=== PATIENT | male | born 1960 | race African-American/Black ===

== ENCOUNTER 2022-06-05 18:50 | Inpatient (IN) | payer OTHER ==
[2022-06-05 23:56] VITALS: BMI 21.7
[2022-06-06] MEDS ORDERED: MAGNESIUM HYDROX 2400MG/30ML ORAL SUSPENSION 30 ML CUP PO PRN (00:13)
[2022-06-06] MEDS ORDERED: P-EPHED 60MG/TRIPROLIDI 2.5MG TABLET PO PRN (00:13)
[2022-06-06] MEDS ORDERED: guaiFENesin 200 MG/10 ML 10 ML UNIT-DOSE CUPS PO PRN (00:13)
[2022-06-06] MEDS ORDERED: NICOTINE POLACRILEX 2 MG GUM BC PRN (00:13)
[2022-06-06] MEDS ORDERED: MELATONIN 5 MG TABLETS PO PRN (00:13)
[2022-06-06] MEDS ORDERED: BENZOCAINE/MENTHOL (CHLORASEPTIC ) LOZENGE MM PRN (00:13)
[2022-06-06] MEDS ORDERED: IBUPROFEN 400 MG TABLET (FP) PO PRN (00:13)
[2022-06-06] MEDS ORDERED: MAG HYDROX/AL HYDROX/SIMETH 30 ML UNIT-DOSE CUP PO PRN (00:13)
[2022-06-06] MEDS ORDERED: LOPERAMIDE HCL 2 MG CAPSULE PO PRN (00:13)
[2022-06-06] MEDS ORDERED: MAGNESIUM CITRATE 300 ML BOTTLE PO PRN (00:13)
[2022-06-06] MEDS ORDERED: hydrOXYzine PAMOATE 25 MG CAPSULE (FP) PO PRN (00:13)
[2022-06-06] MEDS ORDERED: ACETAMINOPHEN 325 MG TABLET (FP) PO PRN (00:13)
[2022-06-06] MEDS ORDERED: PRENATAL VITAMINS W/ FOLIC ACID TABLET (FP) PO SCH (10:00)
[2022-06-06 14:21] VITALS: BP 107/69; PULSE 68; RESP 17; TEMP 96.4
[2022-06-06] MEDS ORDERED: THIAMINE HCL 100 MG TABLET (FP) PO SCH (22:00)
== END 2022-06-06 22:00 | disposition short-term general hospital (02) | DRG 772 ==
LOC: YASAS 18:50 → Y3E 06-06 02:10
PROVIDERS: ADMIT Allergy & Immunology; ATTEND Psychiatry & Neurology Pain Medicine
PROC: HZ42ZZZ Group Counseling for Substance Abuse Treatment, Cognitive-Behavioral (ICD-10-PCS; principal; 2022-06-06)
DX: F14.20 Cocaine dependence, uncomplicated (principal); F17.220 Nicotine dependence, chewing tobacco, uncomplicated; B20 Human immunodeficiency virus [HIV] disease; B37.81 Candidal esophagitis; M17.12 Unilateral primary osteoarthritis, left knee; M54.50 Low back pain, unspecified; G89.29 Other chronic pain; R06.02 Shortness of breath; Z85.72 Personal history of non-Hodgkin lymphomas
CPT/HCPCS: 87811; C9803-CS; U0003; U0005

== ENCOUNTER 2022-06-06 16:05 | Inpatient (IN) | payer OTHER ==
[2022-06-06] MEDS ORDERED: LIDOCAINE 5% TOPICAL PATCH TP ONE (16:52)
[2022-06-06] MEDS ORDERED: SODIUM CHLORIDE 0.9% 500 ML INFUS.BAG IV ONE (17:30)
[2022-06-06] MEDS ORDERED: LIDOCAINE 5% TOPICAL PATCH ONE (18:27)
[2022-06-06 20:08] LABS: VENOUS BASE EXCESS -0.2 mmol/L (-2-2); VENOUS O2 SATURATION 90.1 % (70-80); VENOUS PCO2 39.7 mmHg (38-52); VENOUS PH 7.407 (7.310-7.410)
[2022-06-06 20:24] LABS: BASO % 1.1 % (0-2.0); EOS % 3.1 % (0-4.5); HEMATOCRIT 32.4 % (35.4-49); HEMOGLOBIN 10.9 GM/dL (11.7-16.9); LYMPH % 18.8 % (8-40); MCH 27.6 pg (25.7-33.7); MCHC 33.7 g/dl (32.0-35.9); MEAN CELL VOLUME 81.9 fl (80-96); MEAN PLT VOLUME 9.5 fl (7.5-11.1); MONO % 12.3 % (3.8-10.2); NEUT % 64.7 % (42.8-82.8); PLATELET COUNT 212 10^3/uL (134-434); RBC 3.95 M/mm3 (4.00-5.60); RDW 15.7 % (11.9-15.9); WHITE BLOOD COUNT 3.3 K/mm3 (4.0-10.0)
[2022-06-06 20:24] LABS: EPI CELLS 5 /uL (0-25.1); HYALINE CASTS 0 /uL (0-3.1); PH,URINE 6.5 (5.0-8.0); URINE APPEARANCE CLEAR; URINE BACTERIA 15 /uL (0-1359); URINE BILIRUBIN NEGATIVE (NEGATIVE); URINE COLOR YELLOW; URINE GLUCOSE (UA) NEGATIVE (NEGATIVE); URINE KETONE NEGATIVE (NEGATIVE); URINE LEUK ESTERASE TRACE (NEGATIVE); URINE NITRITE NEGATIVE (NEGATIVE); URINE PROTEIN TRACE (NEGATIVE); URINE RBC 8 /uL (0-23.9); URINE WBC 13 /uL (0-25.8)
[2022-06-06 20:26] LABS: INR 1.01 (0.83-1.09); PROTHROMBIN TIME (PATIENT) 11.6 SEC (9.7-13.0)
[2022-06-06 20:29] LABS: ACTIVATED PTT 32.5 SECONDS (25.2-36.5)
[2022-06-06 20:35] LABS: ALBUMIN 2.3 g/dl (3.4-5.0); CALCIUM 7.8 mg/dL (8.5-10.1)
[2022-06-06 20:36] LABS: BLOOD UREA NITROGEN 11.7 mg/dL (7-18)
[2022-06-06 20:38] LABS: CREATININE 0.8 mg/dL (0.55-1.3)
[2022-06-06] MEDS ORDERED: CEFEPIME HCL/D5W 1 GM/50 ML BAG IVPB ONE (20:39)
[2022-06-06] MEDS ORDERED: VANCOMYCIN 1 GM in D5W (PRE-DOCKED) 1,000 MG/250 ML IVPB ONE (20:39)
[2022-06-06 20:40] LABS: BILIRUBIN,TOTAL 0.1 mg/dL (0.2-1); TOT PROT 7.1 g/dl (6.4-8.2)
[2022-06-06] MEDS ORDERED: VANCOMYCIN/WATER FOR INJ (PEG) 1,000 MG/200 ML BAG IVPB ONE (20:54)
[2022-06-06] MEDS ORDERED: CEFEPIME 1 GM/100 ML BAG IVPB ONE (20:55)
[2022-06-07] MEDS ORDERED: ENOXAPARIN NA (PORCINE) 30 MG/0.3 ML DISP.SYRIN SQ SCH (00:30)
[2022-06-07] MEDS ORDERED: FLUCONAZOLE 100 MG TABLET (UD) PO ONE (00:56)
[2022-06-07] MEDS: CEFEPIME 2 GM in DEXTROSE 5%-WATER 100 ML IVPB SCH ×4 (02:08→19:27)
[2022-06-07] MEDS: LIDOCAINE PATCH REMOVAL MC SCH ×2 (02:15→21:38)
[2022-06-07 08:21] VITALS: BMI 21.9
[2022-06-07] MEDS ORDERED: VANCOMYCIN 1 GM in D5W (PRE-DOCKED) 1,000 MG/250 ML IVPB SCH (10:00)
[2022-06-07] MEDS ORDERED: DAPSONE 100 MG TABLET PO SCH (10:00)
[2022-06-07] MEDS ORDERED: VANCOMYCIN/WATER FOR INJ (PEG) 1,000 MG/200 ML BAG IVPB SCH (10:00)
[2022-06-07] MEDS: FLUCONAZOLE 100 MG TABLET (UD) PO SCH (11:49)
[2022-06-07] MEDS: ENOXAPARIN NA (PORCINE) 40 MG/0.4 ML DISP.SYRIN SQ SCH ×2 (11:49→12:01)
[2022-06-07 13:11] LABS: URINE APPEARANCE CLEAR; URINE BILIRUBIN NEGATIVE (NEGATIVE); URINE COLOR YELLOW; URINE GLUCOSE (UA) NEGATIVE (NEGATIVE); URINE KETONE NEGATIVE (NEGATIVE); URINE LEUK ESTERASE NEGATIVE (NEGATIVE); URINE NITRITE NEGATIVE (NEGATIVE); URINE PROTEIN NEGATIVE (NEGATIVE)
[2022-06-07] MEDS: CEFTRIAXONE 1 GM in DEXTROSE 5%-WATER - 50 ML IVPB SCH (16:18)
[2022-06-08] MEDS: ATOVAQUONE 750 MG/5 ML (UNIT-DOSE PACKAGING) PO SCH (09:49)
[2022-06-08] MEDS: ENOXAPARIN NA (PORCINE) 40 MG/0.4 ML DISP.SYRIN SQ SCH (09:50)
[2022-06-08] MEDS: CEFTRIAXONE 1 GM in DEXTROSE 5%-WATER - 50 ML IVPB SCH (09:50)
[2022-06-08] MEDS: FLUCONAZOLE 100 MG TABLET (UD) PO SCH (09:50)
[2022-06-08] MEDS: LIDOCAINE PATCH REMOVAL MC SCH (21:30)
[2022-06-09 07:07] LABS: CMV IgM < 30.0 AU/mL (0.0-29.9)
[2022-06-09] MEDS: ENOXAPARIN NA (PORCINE) 40 MG/0.4 ML DISP.SYRIN SQ SCH ×2 (10:07→10:18)
[2022-06-09] MEDS: FLUCONAZOLE 100 MG TABLET (UD) PO SCH (10:07)
[2022-06-09] MEDS: ATOVAQUONE 750 MG/5 ML (UNIT-DOSE PACKAGING) PO SCH ×2 (10:08→10:18)
[2022-06-09] MEDS: LIDOCAINE PATCH REMOVAL MC SCH (22:21)
[2022-06-09] MEDS: IBUPROFEN 400 MG TABLET (FP) PO PRN (23:45)
[2022-06-10 08:19] LABS: INR 1.03 (0.83-1.09); PROTHROMBIN TIME (PATIENT) 11.9 SEC (9.7-13.0)
[2022-06-10 08:38] LABS: HEMATOCRIT 34.3 % (35.4-49); HEMOGLOBIN 11.3 GM/dL (11.7-16.9); MCH 26.8 pg (25.7-33.7); MCHC 32.8 g/dl (32.0-35.9); MEAN CELL VOLUME 81.7 fl (80-96); MEAN PLT VOLUME 9.1 fl (7.5-11.1); PLATELET COUNT 257 10^3/uL (134-434); RDW 15.5 % (11.9-15.9)
[2022-06-10 08:51] LABS: WHITE BLOOD COUNT 1.7 K/mm3 (4.0-10.0)
[2022-06-10 09:10] LABS: CREATININE 0.9 mg/dL (0.55-1.3)
[2022-06-10 09:11] LABS: CALCIUM 8.2 mg/dL (8.5-10.1)
[2022-06-10 10:22] LABS: ANISOCYTOSIS 0; HELMET CELLS 0; HOWELL-JOLLY BODIES 0; MACROCYTOSIS 0; OVALOCYTE 0; ROULEAU 0; SICKELED CELLS 0; TARGET CELLS 0; TEAR DROP CELLS 0; TOXIC GRANULATION 0
[2022-06-10] MEDS: FLUCONAZOLE 100 MG TABLET (UD) PO SCH (10:30)
[2022-06-10] MEDS: ENOXAPARIN NA (PORCINE) 40 MG/0.4 ML DISP.SYRIN SQ SCH (10:30)
[2022-06-10] MEDS: ATOVAQUONE 750 MG/5 ML (UNIT-DOSE PACKAGING) PO SCH (10:30)
[2022-06-10] MEDS: LIDOCAINE PATCH REMOVAL MC SCH (21:59)
[2022-06-11] MEDS: DAPSONE 100 MG TABLET PO SCH (10:19)
[2022-06-11] MEDS: FLUCONAZOLE 100 MG TABLET (UD) PO SCH (10:19)
[2022-06-11 12:05] LABS: BASO % 2.6 % (0-2.0); EOS % 4.6 % (0-4.5); HEMATOCRIT 34.4 % (35.4-49); HEMOGLOBIN 11.3 GM/dL (11.7-16.9); LYMPH % 36.6 % (8-40); MCH 27.3 pg (25.7-33.7); MCHC 32.8 g/dl (32.0-35.9); MEAN CELL VOLUME 83.3 fl (80-96); MEAN PLT VOLUME 9.9 fl (7.5-11.1); MONO % 18.1 % (3.8-10.2); NEUT % 38.1 % (42.8-82.8); PLATELET COUNT 259 10^3/uL (134-434); RBC 4.13 M/mm3 (4.00-5.60); RDW 15.8 % (11.9-15.9)
[2022-06-11 12:15] LABS: PROTHROMBIN TIME (PATIENT) 11.5 SEC (9.7-13.0)
[2022-06-11 12:33] LABS: CALCIUM 8.3 mg/dL (8.5-10.1)
[2022-06-11 12:34] LABS: BLOOD UREA NITROGEN 13.6 mg/dL (7-18)
[2022-06-11 12:37] LABS: CREATININE 0.9 mg/dL (0.55-1.3)
[2022-06-11] MEDS: IBUPROFEN 400 MG TABLET (FP) PO PRN (17:06)
[2022-06-11] MEDS: LIDOCAINE PATCH REMOVAL MC SCH (22:35)
[2022-06-12] MEDS ORDERED: LIDOCAINE HCL 2% 100 MG/5 ML DISP.SYRIN ONE (10:51)
[2022-06-12] MEDS: FLUCONAZOLE 100 MG TABLET (UD) PO SCH (12:17)
[2022-06-12] MEDS: DAPSONE 100 MG TABLET PO SCH (12:18)
[2022-06-12] MEDS ORDERED: DARUNAVIR ETHANOLATE 800 MG TAB PO SCH (13:30)
[2022-06-12] MEDS ORDERED: PATIENT'S OWN MEDICATION (NON-FORMULARY) (Elviteg/Cob/Emtri/Tenof Alafen 1 TAB Tablet) PO SCH (13:30)
[2022-06-12 14:44] VITALS: BP 121/86; PULSE 73; RESP 18; TEMP 97.8
== END 2022-06-12 16:15 | disposition home or self-care (01) | DRG 893 ==
LOC: JER 16:05 → JERBED 20:33 → J4S 06-07 00:22 → J7W 06-09 15:49
PROVIDERS: ADMIT Internal Medicine; ATTEND Nurse Practitioner Family
DX: B20 Human immunodeficiency virus [HIV] disease (principal); B37.81 Candidal esophagitis; F17.200 Nicotine dependence, unspecified, uncomplicated; R07.89 Other chest pain; R50.9 Fever, unspecified; L89.892 Pressure ulcer of other site, stage 2; J18.9 Pneumonia, unspecified organism; B07.8 Other viral warts; M17.12 Unilateral primary osteoarthritis, left knee; J47.9 Bronchiectasis, uncomplicated; R13.10 Dysphagia, unspecified; F31.9 Bipolar disorder, unspecified; F14.20 Cocaine dependence, uncomplicated; D70.9 Neutropenia, unspecified; D63.8 Anemia in other chronic diseases classified elsewhere; K29.60 Other gastritis without bleeding; M54.50 Low back pain, unspecified; Z91.14 Patient's other noncompliance with medication regimen; Z88.0 Allergy status to penicillin; Z88.1 Allergy status to other antibiotic agents; Z59.00 Homelessness unspecified; Z85.72 Personal history of non-Hodgkin lymphomas
CPT/HCPCS: 36415; 71045-TC-FY; 71250-TC; 74220-TC-FY; 80048; 80053; 81003; 82550; 82553; 82803; 83605; 83615; 84484; 85025; 85610; 85730; 86360; 86644; 86645; 86704; 86705; 86708; 86709; 86803; 86850; 86900; 86901; 87040; 87086; 87340; 87449; 87517; 87536; 88305-TC; 93005; 93010; 99285-25; C9803-CS; U0003; U0005

== ENCOUNTER 2023-03-08 14:31 | Inpatient (IN) | payer OTHER ==
[2023-03-08 16:00] VITALS: BMI 20.9
[2023-03-08] MEDS ORDERED: IBUPROFEN 400 MG TABLET (FP) PO PRN (18:03)
[2023-03-08] MEDS ORDERED: ACETAMINOPHEN 325 MG TABLET (FP) PO PRN (18:03)
[2023-03-08] MEDS ORDERED: BENZOCAINE/MENTHOL (CHLORASEPTIC ) LOZENGE MM PRN (18:03)
[2023-03-08] MEDS ORDERED: MAG HYDROX/AL HYDROX/SIMETH 30 ML UNIT-DOSE CUP PO PRN (18:03)
[2023-03-08] MEDS ORDERED: COLLOIDAL OATMEAL 1 BAR EACH TP PRN (18:03)
[2023-03-08] MEDS ORDERED: NALOXONE HCL (KLOXXADO) 8 MG SPRAY NS PRN (18:03)
[2023-03-08] MEDS ORDERED: POLYETHYLENE GLYCOL (HEALTHYLAX) 3350 17 GM PACKET PO PRN (18:03)
[2023-03-08] MEDS ORDERED: hydrOXYzine PAMOATE 25 MG CAPSULE (FP) PO PRN (18:03)
[2023-03-08] MEDS ORDERED: IBUPROFEN 600 MG TABLET (FP) PO PRN (18:03)
[2023-03-08] MEDS ORDERED: NICOTINE 10 MG CARTRIDGE (INHALER) IH PRN (18:03)
[2023-03-08] MEDS ORDERED: NICOTINE POLACRILEX 2 MG GUM BUC PRN (18:03)
[2023-03-08] MEDS ORDERED: guaiFENesin 600 MG TABLET.ER (FP) PO PRN (18:03)
[2023-03-08] MEDS ORDERED: AMMONIUM LACTATE 12% LOTION 225 GM BOTTLE TP PRN (18:03)
[2023-03-08] MEDS ORDERED: LOPERAMIDE HCL 2 MG CAPSULE PO PRN (18:03)
[2023-03-08] MEDS ORDERED: MAGNESIUM HYDROX 2400MG/30ML ORAL SUSPENSION 30 ML CUP PO PRN (18:03)
[2023-03-08] MEDS ORDERED: BENZONATATE 200 MG CAPSULE PO PRN (18:03)
[2023-03-08] MEDS ORDERED: NALOXONE HCL 0.4 MG/ML VIAL IM PRN (18:03)
[2023-03-08] MEDS ORDERED: IBUPROFEN 600 MG TABLET (FP) PO ONE (19:00)
[2023-03-08] MEDS: MELATONIN 5 MG TABLETS PO SCH (21:25)
[2023-03-08] MEDS: THIAMINE HCL 100 MG TABLET (FP) PO SCH (21:25)
[2023-03-08 21:56] VITALS: RESP 18
[2023-03-08] MEDS: DARUNAVIR ETHANOLATE 800 MG TAB PO SCH (23:37)
[2023-03-08] MEDS: DAPSONE 100 MG TABLET PO SCH (23:37)
[2023-03-08] MEDS: NICOTINE 21 MG/24 HOURS TOPICAL PATCH TD SCH (23:37)
[2023-03-08] MEDS: ELVITEG/COB/EMTRI/TENOF (GENVOYA) TABLET PO SCH (23:37)
[2023-03-09 00:44] LABS: PH,URINE 6.5 (5.0-8.0); URINE APPEARANCE CLEAR; URINE BILIRUBIN NEGATIVE (NEGATIVE); URINE COLOR YELLOW; URINE GLUCOSE (UA) NEGATIVE (NEGATIVE); URINE KETONE NEGATIVE (NEGATIVE); URINE LEUK ESTERASE NEGATIVE (NEGATIVE); URINE NITRITE NEGATIVE (NEGATIVE); URINE PROTEIN TRACE (NEGATIVE)
[2023-03-09] MEDS: DARUNAVIR ETHANOLATE 800 MG TAB PO SCH (10:17)
[2023-03-09] MEDS: NICOTINE 21 MG/24 HOURS TOPICAL PATCH TD SCH (10:17)
[2023-03-09] MEDS: DAPSONE 100 MG TABLET PO SCH (10:17)
[2023-03-09] MEDS: ELVITEG/COB/EMTRI/TENOF (GENVOYA) TABLET PO SCH (10:17)
[2023-03-09] MEDS: PRENATAL VITAMINS W/ FOLIC ACID TABLET (FP) PO SCH (10:17)
[2023-03-09 11:41] LABS: POTASSIUM 4.8 mmol/L (3.5-5.1)
[2023-03-09 11:45] LABS: HEMATOCRIT 33.4 % (35.4-49); HEMOGLOBIN 11.1 GM/dL (11.7-16.9); MCH 27.5 pg (25.7-33.7); MCHC 33.2 g/dl (32.0-35.9); MEAN CELL VOLUME 82.9 fl (80-96); MEAN PLT VOLUME 10.6 fl (7.5-11.1); PLATELET COUNT 191 10^3/uL (134-434); RBC 4.03 M/mm3 (4.00-5.60); RDW 22.7 % (11.9-15.9); WHITE BLOOD COUNT 3.3 K/mm3 (4.0-10.0)
[2023-03-09 11:50] LABS: ALBUMIN 2.8 g/dl (3.4-5.0); BLOOD UREA NITROGEN 15.8 mg/dL (7-18)
[2023-03-09 11:52] LABS: CALCIUM 8.3 mg/dL (8.5-10.1)
[2023-03-09 11:58] LABS: BILIRUBIN,TOTAL 0.3 mg/dL (0.2-1)
[2023-03-09 12:12] LABS: SYPHILIS W/ RPR CONF NON-REACTIVE (NONREACTIVE)
[2023-03-09] MEDS: MELATONIN 5 MG TABLETS PO SCH (21:56)
[2023-03-09] MEDS: THIAMINE HCL 100 MG TABLET (FP) PO SCH (21:56)
[2023-03-10] MEDS: DAPSONE 100 MG TABLET PO SCH (09:38)
[2023-03-10] MEDS: DARUNAVIR ETHANOLATE 800 MG TAB PO SCH (09:38)
[2023-03-10] MEDS: PRENATAL VITAMINS W/ FOLIC ACID TABLET (FP) PO SCH (09:38)
[2023-03-10] MEDS: ELVITEG/COB/EMTRI/TENOF (GENVOYA) TABLET PO SCH (09:38)
[2023-03-10] MEDS: NICOTINE 21 MG/24 HOURS TOPICAL PATCH TD SCH (09:38)
[2023-03-10] MEDS: THIAMINE HCL 100 MG TABLET (FP) PO SCH (21:09)
[2023-03-10] MEDS: MELATONIN 5 MG TABLETS PO SCH (21:09)
[2023-03-11] MEDS: DAPSONE 100 MG TABLET PO SCH (10:43)
[2023-03-11] MEDS: ELVITEG/COB/EMTRI/TENOF (GENVOYA) TABLET PO SCH (10:43)
[2023-03-11] MEDS: DARUNAVIR ETHANOLATE 800 MG TAB PO SCH (10:43)
[2023-03-11] MEDS: NICOTINE 21 MG/24 HOURS TOPICAL PATCH TD SCH (10:43)
[2023-03-11] MEDS: PRENATAL VITAMINS W/ FOLIC ACID TABLET (FP) PO SCH (10:44)
[2023-03-11 13:13] VITALS: TEMP 97.7
[2023-03-11 13:14] VITALS: BP 92/57; PULSE 69
== END 2023-03-11 18:05 | disposition short-term general hospital (02) | DRG 772 ==
LOC: YASAS 14:31 → Y3W 19:10
PROVIDERS: ADMIT Allergy & Immunology; ATTEND Psychiatry & Neurology Pain Medicine
PROC: HZ42ZZZ Group Counseling for Substance Abuse Treatment, Cognitive-Behavioral (ICD-10-PCS; principal; 2023-03-08)
DX: F14.20 Cocaine dependence, uncomplicated (principal); F12.20 Cannabis dependence, uncomplicated; F17.210 Nicotine dependence, cigarettes, uncomplicated; F31.9 Bipolar disorder, unspecified; F32.A Depression, unspecified; B20 Human immunodeficiency virus [HIV] disease; G47.00 Insomnia, unspecified; R76.11 Nonspecific reaction to tuberculin skin test without active tuberculosis; Z85.6 Personal history of leukemia; Z86.19 Personal history of other infectious and parasitic diseases; Z99.89 Dependence on other enabling machines and devices; Z59.01 Sheltered homelessness; Z88.0 Allergy status to penicillin; Z88.2 Allergy status to sulfonamides
CPT/HCPCS: 36415; 71046-TC-FY; 80053; 81003; 85027; 86780; 86803; 87522; 87811; C9803-CS; U0003; U0005

== ENCOUNTER 2023-03-11 11:23 | Observation (INO) | payer OTHER ==
[2023-03-11 11:38] VITALS: BMI 21.7
[2023-03-11 13:16] LABS: HEMATOCRIT 31.5 % (35.4-49); HEMOGLOBIN 10.4 GM/dL (11.7-16.9); MCH 27.3 pg (25.7-33.7); MEAN CELL VOLUME 82.9 fl (80-96); MEAN PLT VOLUME 10.6 fl (7.5-11.1); PLATELET COUNT 212 10^3/uL (134-434); RDW 22.4 % (11.9-15.9); WHITE BLOOD COUNT 3.5 K/mm3 (4.0-10.0)
[2023-03-11 13:33] LABS: POTASSIUM 4.6 mmol/L (3.5-5.1)
[2023-03-11 13:34] LABS: CALCIUM 8.2 mg/dL (8.5-10.1)
[2023-03-11 13:36] LABS: ALBUMIN 2.7 g/dl (3.4-5.0)
[2023-03-11 13:40] LABS: BILIRUBIN,TOTAL 0.2 mg/dL (0.2-1); TOT PROT 7.8 g/dl (6.4-8.2)
[2023-03-11 14:11] LABS: ANISOCYTOSIS 2+; MACROCYTOSIS 0
[2023-03-12] MEDS: ENOXAPARIN NA (PORCINE) 40 MG/0.4 ML DISP.SYRIN SQ SCH (09:55)
[2023-03-12] MEDS: ELVITEG/COB/EMTRI/TENOF (GENVOYA) TABLET PO SCH (11:24)
[2023-03-12] MEDS: DAPSONE 100 MG TABLET PO SCH (11:24)
[2023-03-12] MEDS: DARUNAVIR ETHANOLATE 800 MG TAB PO SCH (11:25)
[2023-03-12] MEDS ORDERED: TAMSULOSIN HCL 0.4 MG CAP PO ONE (12:47)
[2023-03-12 18:47] LABS: URINE APPEARANCE CLEAR; URINE BILIRUBIN NEGATIVE (NEGATIVE); URINE COLOR YELLOW; URINE GLUCOSE (UA) NEGATIVE (NEGATIVE); URINE KETONE NEGATIVE (NEGATIVE); URINE LEUK ESTERASE NEGATIVE (NEGATIVE); URINE NITRITE NEGATIVE (NEGATIVE); URINE PROTEIN NEGATIVE (NEGATIVE)
[2023-03-13] MEDS: DAPSONE 100 MG TABLET PO SCH (10:26)
[2023-03-13] MEDS: DARUNAVIR ETHANOLATE 800 MG TAB PO SCH (10:26)
[2023-03-13] MEDS: ELVITEG/COB/EMTRI/TENOF (GENVOYA) TABLET PO SCH (10:26)
[2023-03-13] MEDS: TAMSULOSIN HCL 0.4 MG CAP PO SCH (10:26)
[2023-03-13] MEDS: ENOXAPARIN NA (PORCINE) 40 MG/0.4 ML DISP.SYRIN SQ SCH (10:27)
[2023-03-13 10:31] VITALS: RESP 18
[2023-03-13] MEDS ORDERED: ACETAMINOPHEN 325 MG TABLET (FP) ONE (20:48)
[2023-03-13 21:17] VITALS: BP 114/63; PULSE 96; TEMP 98.9
[2023-03-14] MEDS: TAMSULOSIN HCL 0.4 MG CAP PO SCH (09:30)
[2023-03-14] MEDS: ENOXAPARIN NA (PORCINE) 40 MG/0.4 ML DISP.SYRIN SQ SCH (09:31)
[2023-03-14] MEDS: DARUNAVIR ETHANOLATE 800 MG TAB PO SCH (09:32)
[2023-03-14] MEDS: DAPSONE 100 MG TABLET PO SCH (09:32)
[2023-03-14] MEDS: ELVITEG/COB/EMTRI/TENOF (GENVOYA) TABLET PO SCH (09:32)
== END 2023-03-14 13:00 | disposition home or self-care (01) ==
LOC: JER 11:23 → JERBED 13:26 → J8W 16:17
PROVIDERS: ADMIT Internal Medicine; ATTEND Nurse Practitioner Acute Care
DX: A15.0 Tuberculosis of lung (principal); B20 Human immunodeficiency virus [HIV] disease; Z88.8 Allergy status to other drugs, medicaments and biological substances; Z29.9 Encounter for prophylactic measures, unspecified; F19.10 Other psychoactive substance abuse, uncomplicated; Z88.0 Allergy status to penicillin
CPT/HCPCS: 0241U-QW; 36415; 71250-TC; 80053; 81003; 85025; 86359; 86360; 87040; 87086; 87116; 87206; 93005; 93010; 99285-25; G0378

== ENCOUNTER 2023-08-10 17:37 | Inpatient (IN) | payer OTHER ==
[2023-08-10] MEDS ORDERED: NYSTATIN 500,000 UNITS/5 ML SUSPENSION PO ONE (19:56)
[2023-08-10 21:03] LABS: HEMATOCRIT 31.7 % (35.4-49); HEMOGLOBIN 10.5 GM/dL (11.7-16.9); MCH 27.4 pg (25.7-33.7); MCHC 33.2 g/dl (32.0-35.9); MEAN CELL VOLUME 82.6 fl (80-96); MEAN PLT VOLUME 9.3 fl (7.5-11.1); PLATELET COUNT 264 10^3/uL (134-434); RBC 3.84 M/mm3 (4.00-5.60); RDW 19.8 % (11.9-15.9); WHITE BLOOD COUNT 3.1 K/mm3 (4.0-10.0)
[2023-08-10 21:13] LABS: EPI CELLS 6 /uL (0-25.1); HYALINE CASTS 0 /uL (0-3.1); PH,URINE 6.5 (5.0-8.0); URINE APPEARANCE CLEAR; URINE BACTERIA 66 /uL (0-1359); URINE BILIRUBIN NEGATIVE (NEGATIVE); URINE COLOR YELLOW; URINE GLUCOSE (UA) NEGATIVE (NEGATIVE); URINE KETONE NEGATIVE (NEGATIVE); URINE LEUK ESTERASE NEGATIVE (NEGATIVE); URINE NITRITE NEGATIVE (NEGATIVE); URINE PROTEIN 1+ (NEGATIVE); URINE RBC 12 /uL (0-23.9); URINE WBC 10 /uL (0-25.8)
[2023-08-10 21:24] LABS: POTASSIUM 4.6 mmol/L (3.5-5.1)
[2023-08-10 21:28] LABS: ALBUMIN 2.6 g/dl (3.4-5.0)
[2023-08-10 21:31] LABS: CREATININE 0.8 mg/dL (0.55-1.3)
[2023-08-10 21:33] LABS: BILIRUBIN,TOTAL 0.4 mg/dL (0.2-1); TOT PROT 7.6 g/dl (6.4-8.2)
[2023-08-10] MEDS ORDERED: guaiFENesin/D-METHORPHAN HB 10 ML UNIT-DOSE CUPS PO ONE (23:47)
[2023-08-10] MEDS ORDERED: guaiFENesin/D-METHORPHAN HB 10 ML UNIT-DOSE CUPS ONE (23:48)
[2023-08-11] MEDS ORDERED: ONDANSETRON 4 MG/2 ML VIAL IVPUSH PRN (02:02)
[2023-08-11] MEDS ORDERED: REMDESIVIR 200 MG in SODIUM CHLORIDE 250 ML IVPB ONE ×2 (03:00→05:30)
[2023-08-11] MEDS: SODIUM CHLORIDE 1,000 ML IV SCH ×2 (03:24→18:35)
[2023-08-11] MEDS: FLUCONAZOLE 200 MG/NS 100 ML IVPB SCH (04:24)
[2023-08-11] MEDS ORDERED: FLUCONAZOLE 100 MG TABLET (UD) PO SCH (10:00)
[2023-08-11] MEDS ORDERED: BICTEGRAV/EMTRICIT/TENOFOV (BIKTARVY) 50-200-25 MG TABLET PO SCH (10:15)
[2023-08-11] MEDS ORDERED: ENOXAPARIN NA (PORCINE) 30 MG/0.3 ML DISP.SYRIN SQ ONE (10:19)
[2023-08-11] MEDS: ENOXAPARIN NA (PORCINE) 30 MG/0.3 ML DISP.SYRIN SQ SCH (10:24)
[2023-08-12] MEDS: SODIUM CHLORIDE 1,000 ML IV SCH ×2 (00:56→23:49)
[2023-08-12] MEDS: REMDESIVIR 100 MG in SODIUM CHLORIDE 250 ML IVPB SCH (06:33)
[2023-08-12] MEDS: ENOXAPARIN NA (PORCINE) 30 MG/0.3 ML DISP.SYRIN SQ SCH ×2 (09:05→09:16)
[2023-08-12] MEDS: FLUCONAZOLE 200 MG/NS 100 ML IVPB SCH (09:06)
[2023-08-12] MEDS: DAPSONE 100 MG TABLET PO SCH (09:06)
[2023-08-12 14:25] VITALS: BMI 18.7
[2023-08-12] MEDS: FLUCONAZOLE 100 MG TABLET (UD) PO SCH (15:33)
[2023-08-12] MEDS: NYSTATIN 500,000 UNITS/5 ML SUSPENSION PO SCH ×2 (17:40→23:35)
[2023-08-13] MEDS ORDERED: ACETAMINOPHEN 1000 MG/100 ML BAG IVPB ONE (00:07)
[2023-08-13] MEDS ORDERED: IBUPROFEN 400 MG TABLET (FP) PO ONE (00:10)
[2023-08-13] MEDS ORDERED: BENZOCAINE/MENTH/CETYLPYRD CL 1 EACH LOZENGE MM ONE (01:06)
[2023-08-13] MEDS: NYSTATIN 500,000 UNITS/5 ML SUSPENSION PO SCH ×4 (07:03→23:58)
[2023-08-13] MEDS: ENOXAPARIN NA (PORCINE) 30 MG/0.3 ML DISP.SYRIN SQ SCH (11:19)
[2023-08-13] MEDS: REMDESIVIR 100 MG in SODIUM CHLORIDE 250 ML IVPB SCH (11:19)
[2023-08-13] MEDS: DAPSONE 100 MG TABLET PO SCH (11:20)
[2023-08-13] MEDS: FLUCONAZOLE 100 MG TABLET (UD) PO SCH (11:20)
[2023-08-13] MEDS ORDERED: VANCOMYCIN/WATER FOR INJ (PEG) 1,000 MG/200 ML BAG IVPB ONE (15:30)
[2023-08-13] MEDS ORDERED: MELATONIN 5 MG TABLETS PO ONE (23:53)
[2023-08-14] MEDS: NYSTATIN 500,000 UNITS/5 ML SUSPENSION PO SCH ×3 (06:11→18:25)
[2023-08-14] MEDS: ENOXAPARIN NA (PORCINE) 30 MG/0.3 ML DISP.SYRIN SQ SCH (11:38)
[2023-08-14] MEDS ORDERED: guaiFENesin 200 MG/10 ML 10 ML UNIT-DOSE CUPS PO PRN (14:25)
[2023-08-14] MEDS: FLUCONAZOLE 100 MG TABLET (UD) PO SCH (14:46)
[2023-08-14] MEDS: DAPSONE 100 MG TABLET PO SCH (14:47)
[2023-08-14] MEDS: REMDESIVIR 100 MG in SODIUM CHLORIDE 250 ML IVPB SCH (14:47)
[2023-08-15] MEDS: NYSTATIN 500,000 UNITS/5 ML SUSPENSION PO SCH ×4 (01:21→17:46)
[2023-08-15] MEDS: REMDESIVIR 100 MG in SODIUM CHLORIDE 250 ML IVPB SCH (06:55)
[2023-08-15 08:17] LABS: BASO % 1.3 % (0-2.0); EOS % 1.5 % (0-4.5); HEMATOCRIT 30.2 % (35.4-49); HEMOGLOBIN 10.2 GM/dL (11.7-16.9); MCH 26.8 pg (25.7-33.7); MCHC 33.7 g/dl (32.0-35.9); MEAN CELL VOLUME 79.6 fl (80-96); MEAN PLT VOLUME 9.8 fl (7.5-11.1); MONO % 15.9 % (3.8-10.2); NEUT % 56.3 % (42.8-82.8); PLATELET COUNT 218 10^3/uL (134-434); RBC 3.79 M/mm3 (4.00-5.60); RDW 19.2 % (11.9-15.9); WHITE BLOOD COUNT 2.7 K/mm3 (4.0-10.0)
[2023-08-15 08:24] LABS: POTASSIUM 4.5 mmol/L (3.5-5.1)
[2023-08-15 08:30] LABS: CALCIUM 7.6 mg/dL (8.5-10.1)
[2023-08-15 08:31] LABS: ALBUMIN 2.3 g/dl (3.4-5.0); BLOOD UREA NITROGEN 14.5 mg/dL (7-18); MAGNESIUM 1.7 mg/dL (1.8-2.4)
[2023-08-15 08:34] LABS: CREATININE 0.9 mg/dL (0.55-1.3); PHOSPHOROUS 3.3 mg/dL (2.5-4.9)
[2023-08-15 08:35] LABS: BILIRUBIN,TOTAL 0.5 mg/dL (0.2-1); TOT PROT 7.1 g/dl (6.4-8.2)
[2023-08-15] MEDS: FLUCONAZOLE 100 MG TABLET (UD) PO SCH (09:35)
[2023-08-15] MEDS: ENOXAPARIN NA (PORCINE) 30 MG/0.3 ML DISP.SYRIN SQ SCH ×2 (09:35→09:39)
[2023-08-15] MEDS: DAPSONE 100 MG TABLET PO SCH (09:35)
[2023-08-15 10:57] LABS: ANISOCYTOSIS 1+; MACROCYTOSIS 0; OVALOCYTE 2+; TARGET CELLS 2+
[2023-08-15 18:28] VITALS: RESP 18
[2023-08-15] MEDS: SODIUM CHLORIDE 1,000 ML IV SCH ×2 (18:47→18:52)
[2023-08-15 21:20] VITALS: BP 113/56; PULSE 89; TEMP 98.6
[2023-08-15] MEDS ORDERED: ACETAMINOPHEN 325 MG TABLET (FP) PO PRN (22:31)
[2023-08-16] MEDS: NYSTATIN 500,000 UNITS/5 ML SUSPENSION PO SCH ×3 (01:44→11:44)
[2023-08-16] MEDS: ENOXAPARIN NA (PORCINE) 30 MG/0.3 ML DISP.SYRIN SQ SCH (09:12)
[2023-08-16] MEDS: FLUCONAZOLE 100 MG TABLET (UD) PO SCH (09:12)
[2023-08-16] MEDS: DAPSONE 100 MG TABLET PO SCH (09:12)
[2023-08-16] MEDS ORDERED: MELATONIN 5 MG TABLETS PO SCH (22:00)
== END 2023-08-16 13:43 | disposition home or self-care (01) | DRG 892 ==
LOC: JER 17:37 → JERBED 23:20 → J4S 08-11 17:22
PROVIDERS: ADMIT Internal Medicine; ATTEND Internal Medicine
PROC: XW033E5 Introduction of Remdesivir Anti-infective into Peripheral Vein, Percutaneous Approach, New Technology Group 5 (ICD-10-PCS; principal; 2023-08-11)
DX: U07.1 COVID-19 (principal); B20 Human immunodeficiency virus [HIV] disease; B37.81 Candidal esophagitis; F14.10 Cocaine abuse, uncomplicated; F10.20 Alcohol dependence, uncomplicated; Z88.1 Allergy status to other antibiotic agents; K44.9 Diaphragmatic hernia without obstruction or gangrene; R78.81 Bacteremia; R64 Cachexia; Z68.1 Body mass index [BMI] 19.9 or less, adult; M54.50 Low back pain, unspecified; R13.10 Dysphagia, unspecified; C85.90 Non-Hodgkin lymphoma, unspecified, unspecified site; Z59.00 Homelessness unspecified
CPT/HCPCS: 36415; 71045-TC-FY; 71250-TC; 74220-TC-FY; 76700-TC; 80053; 81003; 82977; 83735; 84100; 85025; 85027; 87040; 87635; 93005; 93010; 99285-25; C9399